=== PATIENT | female | born 1960 | race Caucasian/White ===

== ENCOUNTER 2020-08-27 10:22 | Day surgery (SDC) | payer BC ==
[~2020-08-27] VITALS: Ht 160 cm; Wt 52.0 kg
[~2020-08-27 10:22] MED LIST: AMBIEN10 MG PO; ATENOLOL100 MG PO; ATENOLOL50 MG PO; BOTOX100 UNITS IM; DEPAKOTE ER250 MG PO; IMITREX25 MG PO; IMITREX50 MG PO; TOPAMAX100 MG PO; TOPAMAX25 MG PO
[2020-08-27] MEDS ORDERED: NEXIUM40 MG PO (11:04)
--- NOTE | 2020-08-27 12:22 | NUR ---
08/27/20 1222 Nica Lawson 1217 PT ARRIVED TO PACU WITH 2L VIA NC IN PLACE. VSS. PT RESTING IN BED AND NO CONCERNS. PLAN OF CARE DISCUSSED.
--- NOTE | 2020-08-30 18:52 | PATH ---
[facility] [address] [place], [place] [address] Signed SPECIMEN(S): A DUODENUM SPECIMEN(S): B ANTRUM/PYLORUS SPECIMEN(S): C DISTAL LOWER ESOPHAGUS SPECIMEN(S): D MID MIDDLE ESOPHAGUS SPECIMEN SOURCE: A. DUODENUM B. ANTRUM/PYLORUS C. DISTAL LOWER ESOPHAGUS D. MID MIDDLE ESOPHAGUS CLINICAL HISTORY: Pre: Reflux; screening colonoscopy. Post: Mild gastritis, diverticulosis. MICROSCOPIC DESCRIPTION: Histologic sections of all submitted blocks are examined by light microscopy. These findings, together with the gross examination, support the pathologic diagnosis. FINAL PATHOLOGIC DIAGNOSIS: A. Duodenum, biopsy: - Duodenal mucosa with no histopathologic abnormality. - Negative for dysplasia or malignancy. B. Stomach, antrum/pylorus, biopsy: - Antral mucosa with reactive gastropathy. - Negative for Helicobacter organisms on HE stain. - Negative for dysplasia or malignancy. C. Esophagus, distal lower, biopsy: - Squamous mucosa with chronic inflammation and reactive epithelial changes, consistent with reflux esophagitis. - Negative for intestinal metaplasia, dysplasia, or malignancy. D. Esophagus, mid middle, biopsy: - Squamous mucosa with mixed acute and chronic inflammation and reactive epithelial changes, suggestive of reflux esophagitis. - Cardiac-type gastric mucosa with reactive changes. - Negative for intestinal metaplasia, dysplasia, or malignancy. COMMENT: Regarding specimen D: The fragment of gastric mucosa could represent heterotopic gastric mucosa within the esophagus. A PAS/D stain (with appropriately staining controls) is negative for fungal organisms. PATIENT NAME: CLIFF SANCHEZ PATHOLOGY DATE OF : 56 REPORT #: [id number] PHYSICIAN: WOO SOLITARIO PCP: ISAAC VILLARREAL MD REPORT IS CONFIDENTIAL AND NOT TO BE RELEASED WITHOUT AUTHORIZATION [facility] [address] [place], [place] [address] Signed NAL:cml:C2NR GROSS DESCRIPTION: Four specimens are received in four containers, labeled "RH." A. The specimen, labeled "RH," and designated on the requisition "duodenum biopsy," is received in formalin and consists of one fragment of pink-diego tissue (0.4 x 0.3 x 0.3 cm). The specimen is submitted entirely in cassette (A1). B. The specimen, labeled "RH," and designated on the requisition "antrum/pylorus biopsy," is received in formalin and consists of two fragments of pink-diego tissue (0.5 x 0.3 x 0.3 cm in aggregate). The specimen is submitted entirely in cassette (B1). C. The specimen, labeled "RH," and designated on the requisition "distal lower esophagus biopsy," is received in formalin and consists of three fragments of white-diego tissue (0.3 x 0.3 x 0.1 cm in aggregate). The specimen is submitted entirely in cassette (C1). D. The specimen, labeled "RH," and designated on the requisition "mid middle esophagus biopsy," is received in formalin and consists of three fragments of white-diego tissue (0.6 x 0.3 x 0.1 cm in aggregate). The specimen is submitted entirely in cassette (D1). AC (under the direct supervision of a pathologist) The Gross Description was prepared using a voice recognition system. The report was reviewed for accuracy; however, sound-alike word errors, addition and/or deletions may occur. If there is any question about this report, please contact Client Services. PERFORMING LABORATORY: The technical component was performed by [facility], [address] [place] [id number] ([employer] School [employer] Teacher: Merly Paulino MD; CLIA# [id number]). Professional interpretation was performed by [facility], [address] [place], [place] [address] (CLIA# [id number]). Diagnostician: Lois Fleming MD Pathologist Electronically Signed 08/30/2020 Copies: PATIENT NAME: CLIFF SANCHEZ PATHOLOGY DATE OF : 56 REPORT #: [id number] PHYSICIAN: WOO PATHOLOGY PCP: ISAAC VILLARREAL MD REPORT IS CONFIDENTIAL AND NOT TO BE RELEASED WITHOUT AUTHORIZATION [facility] [address] [facility] [place] [address] Signed ~ PATIENT NAME: CLIFF SANCHEZ PATHOLOGY DATE OF : 56 REPORT #: [id number] PHYSICIAN: WOO SOLITARIO PCP: ISAAC VILLARREAL MD REPORT IS CONFIDENTIAL AND NOT TO BE RELEASED WITHOUT AUTHORIZATION
--- NOTE | 2020-09-01 08:31 | OR ---
[facility] [address] [place], [place] [address] Signed DATE OF OPERATION: 08/27/2020 SURGEON: Christina Ray MD PREOPERATIVE DIAGNOSES: 1. Longstanding gastroesophageal reflux. 2. Diverticulosis. POSTOPERATIVE DIAGNOSES: 1. Mild gastritis. 2. Diverticular disease of sigmoid and left colon. PROCEDURE: 1. Esophagogastroduodenoscopy with biopsy. 2. Upper endoscopy. ANESTHESIA: Intravenous sedation, fentanyl 150 mcg and Versed 4 mg. INDICATION: This 60-year-old white woman is a patient of Dr. Christina Aceves. She is here for surveillance colonoscopy. Her last colonoscopy in 2007 at which time she had diverticulosis. She is symptom-free and has no family history of colon cancer. Additionally, she is noted to have clinical symptoms consistent with reflux disease for which she takes Nexium on a routine basis. Plans were made for endoscopic evaluation several months ago however, she did develop a COVID disease, which she tolerated well and was recovered from fully. She is symptom-free at this time. She is to undergo upper endoscopy and colonoscopy. She understands the risks of bleeding, infection, and perforation. FINDINGS: Upper endoscopy showed mild diffuse gastritis minimal. Esophagus was normal. There was no hiatal hernia. CLOtest was negative. 30 minutes post procedure. On colonoscopy, the prep was excellent. Complete colonoscopy was undertaken of the cecum without question. There were numerous diverticula of the sigmoid and left colon. There were no polyps. DESCRIPTION OF PROCEDURE: Electronically Signed By: CHRISTINA RAY MD 09/01/20 0831 PATIENT NAME: CLIFF SANCHEZ OPERATIVE REPORT DATE OF : 56 REPORT #: [id number] PHYSICIAN: CHRISTINA RAY MD PCP: ISAAC ACEVES MD REPORT IS CONFIDENTIAL AND NOT TO BE RELEASED WITHOUT AUTHORIZATION [facility] [address] [place], [place] [address] Signed The patient was brought to the endoscopy suite and given topical hypopharyngeal lidocaine anesthetic. Given intravenous sedation to the point of slurred speech and nystagmus. A bite block was placed. An Olympus video upper endoscope was passed in the hypopharynx. The vocal cords appeared normal. Scope was advanced to the esophagus, which appeared normal. Scope was passed to the stomach, which was insufflated with air. There was some bilious fluid within the stomach. Rugal folds were normal. Antral motility normal. Pylorus normal. The scope passed through it into the duodenum, which was normal. Biopsies were taken of the duodenum and the second and third portions. The scope was withdrawn. Biopsies then taken the more proximal stomach, which showed mild diffuse gastritis. Retroflex view showed a normal flap valve. The scope was withdrawn to the distal esophagus, which was biopsied, although the mucosa appeared normal. Midesophageal biopsy was also obtained. The scope was removed. Plans were then made for colonoscopy. Digital rectal examination was normal. An Olympus video colonoscope was passed in the rectum and manipulated throughout the colon noting diverticulosis throughout the sigmoid and left colon. Scope was ultimately passed to the cecum where it was fully intubated. Irrigation was undertaken. The ileocecal valve and appendiceal orifice were normal. Scope was withdrawn and examination throughout showed no sign of abnormality other than diverticular change of the left colon and sigmoid. Retroflex view was normal. Scope was removed and the patient was taken to the recovery room in good condition. CONCLUDING DIAGNOSIS: 1. Mild diffuse gastritis, no evidence of esophagitis. 2. Diverticulosis. PLAN: Continue use of Nexium is reasonable if she has good control of symptoms with it, she could consider change to H2 qamar. As regards to colon, repeat colonoscopy in 10 years sooner if clinically indicated. I would recommend high-fiber diet given her diverticular disease. MD PATRICIA Hartman/MODL /[id number] Electronically Signed By: CHRISTINA RAY MD 09/01/20 0831 PATIENT NAME: CLIFF SANCHEZ OPERATIVE REPORT DATE OF : 56 REPORT #: [id number] PHYSICIAN: CHRISTINA RAY MD PCP: ISAAC ACEVES MD REPORT IS CONFIDENTIAL AND NOT TO BE RELEASED WITHOUT AUTHORIZATION [facility] [address] [place] [id number] Signed cc: Isaac Aceves MD Copies: ISAAC ACEVES MD ~ Electronically Signed By: CHRISTINA RAY MD 09/01/20 0831 PATIENT NAME: CLIFF SANCHEZ OPERATIVE REPORT DATE OF : 56 REPORT #: [id number] PHYSICIAN: CHRISTINA RAY MD PCP: ISAAC ACEVES MD REPORT IS CONFIDENTIAL AND NOT TO BE RELEASED WITHOUT AUTHORIZATION
== END 2020-08-27 13:00 | disposition home or self-care (01) ==
LOC: DS 10:22 → OPS 10:22 → DS 11:00 → OPS 11:00
PROVIDERS: ATTEND Surgery
PROC: 0DB28ZX Excision of Middle Esophagus, Via Natural or Artificial Opening Endoscopic, Diagnostic (ICD-10-PCS; 2020-08-27)
PROC: 0DB38ZX Excision of Lower Esophagus, Via Natural or Artificial Opening Endoscopic, Diagnostic (ICD-10-PCS; 2020-08-27)
PROC: 0DJD8ZZ Inspection of Lower Intestinal Tract, Via Natural or Artificial Opening Endoscopic (ICD-10-PCS; 2020-08-27)
PROC: 0DB98ZX Excision of Duodenum, Via Natural or Artificial Opening Endoscopic, Diagnostic (ICD-10-PCS; principal; 2020-08-27 11:00)
PROC: 0DB68ZX Excision of Stomach, Via Natural or Artificial Opening Endoscopic, Diagnostic (ICD-10-PCS; 2020-08-27 11:00)
DX: Z12.11 Encounter for screening for malignant neoplasm of colon (principal); K29.70 Gastritis, unspecified, without bleeding; K57.30 Diverticulosis of large intestine without perforation or abscess without bleeding; K21.9 Gastro-esophageal reflux disease without esophagitis; G43.909 Migraine, unspecified, not intractable, without status migrainosus; K59.00 Constipation, unspecified; K62.5 Hemorrhage of anus and rectum; Z79.899 Other long term (current) drug therapy; Z79.1 Long term (current) use of non-steroidal anti-inflammatories (NSAID); Z90.49 Acquired absence of other specified parts of digestive tract; Z86.19 Personal history of other infectious and parasitic diseases
CPT/HCPCS: 99153; G0500; J2250; J3010; J7121